=== PATIENT | female | born 1940 | race Caucasian/White ===

== ENCOUNTER 2021-06-05 15:56 | Emergency (ER) | payer MEDICAID, MEDICARE, OTHER ==
--- NOTE | 2021-06-05 17:26 | EDM.PDOC ---
ED HPI GENERAL MEDICAL PROBLEM - General Chief Complaint: General Stated Complaint: BRUISING AND BLEEDING Time Seen by Provider: 06/05/21 17:10 Source of Information: Reports: Patient, Family. Denies: Old Records History Limitations: Reports: Other (no old records) - History of Present Illness INITIAL COMMENTS - FREE TEXT/NARRATIVE: 81 yo [place] presents with a concern about diffuse bruising. She was in a hospital a couple mos ago and had warfarin started for an unknown reason and claims she has never had an INR since then. She or family members called her provider today and they were told to come to the ER. Has not had blood in her stool or urine. No nose bleeds. Is not dizzy with standing. 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 (see below) (none) - Related Data Allergies Allergy/AdvReac Type Severity Reaction Status Date / Time No Known Allergies Allergy Verified 06/05/21 16:56 Home Meds: Home Meds Aspirin 81 mg PO DAILY 06/05/21 [History] Diphenoxylate HCl/Atropine [Diphenoxylate-Atrop 2.5-0.025] 1 each PO ASDIRECTED PRN 06/05/21 [History] Furosemide 40 mg PO DAILY 06/05/21 [History] Glimepiride 2 mg PO DAILY 06/05/21 [History] Multivitamin with Minerals [Multiple Vitamin] 1 tab PO DAILY 06/05/21 [History] Omeprazole 20 mg PO DAILY 06/05/21 [History] Potassium Chloride 10 meq PO BID 06/05/21 [History] Simvastatin [Zocor] 20 mg PO BEDTIME 06/05/21 [History] Spironolactone [Aldactone] 25 mg PO BID 06/05/21 [History] Warfarin [Coumadin] 2.5 mg PO DAILY 06/05/21 [History] amLODIPine Besylate [Amlodipine Besylate] 5 mg PO DAILY 06/05/21 [History] predniSONE [Prednisone] 5 mg PO DAILY 06/05/21 [History] Past Medical History Cardiovascular History: Reports: Hypertension 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: Endocrine/Metabolic History: Reports: Diabetes, Type II Oncologic (Cancer) History: Reports: Other (See Below) Other Oncologic History: skin Dermatologic History: Reports: Melanoma - Infectious Disease History Infectious Disease History: Reports: Chicken Pox, Measles, Mumps - Past Surgical History GI Surgical History: Reports: Appendectomy, Cholecystectomy Female Surgical History: Reports: Hysterectomy Social & Family History - Tobacco Use Tobacco Use Status *Q: Never Tobacco User - Caffeine Use Caffeine Use: Reports: Coffee ED ROS GENERAL - Review of Systems Review Of Systems: See Below Constitutional: Reports: No Symptoms HEENT: Reports: No Symptoms Respiratory: Reports: No Symptoms Cardiovascular: Reports: No Symptoms GI/Abdominal: Reports: No Symptoms : Reports: No Symptoms Musculoskeletal: Reports: No Symptoms Skin: Reports: Bruising (diffusely) Neurological: Reports: No Symptoms ED EXAM, GENERAL - Physical Exam Exam: See Below Exam Limited By: No Limitations General Appearance: Alert, WD/WN, No Apparent Distress Eye Exam: Bilateral Eye: Normal Inspection Ears: Normal External Exam, Normal Canal, Hearing Grossly Normal Ear Exam: Bilateral Ear: Auricle Normal, Canal Normal Nose: Normal Inspection, No Blood Throat/Mouth: Normal Inspection, Normal Lips, Normal Oropharynx, Normal Voice, No Airway Compromise, Other (edentulous) Head: Atraumatic, Normocephalic Neck: Normal Inspection Respiratory/Chest: No Respiratory Distress, Lungs Clear, Normal Breath Sounds, No Accessory Muscle Use Cardiovascular: Regular Rate, Rhythm, No Edema GI/Abdominal: Soft, Non-Tender, No Distention Extremities: Normal Inspection, Normal Range of Motion, Non-Tender, No Pedal Edema Neurological: Alert, Oriented, CN II-XII Intact, Normal Cognition, No Motor/Sensory Deficits Psychiatric: Normal Affect, Normal Mood Skin Exam: Warm, Dry, Intact, No Rash, Ecchymosis (diffusely). No: Normal Color, Erythema, Increased Warmth, Wound/Incision Course - Vital Signs Last Recorded V/S: Last Vital Signs Temp 36.5 C 06/05/21 16:51 Pulse 74 06/05/21 16:51 Resp 16 06/05/21 16:51 BP 180/70 H 06/05/21 16:51 Pulse Ox 97 06/05/21 16:51 - Orders/Labs/Meds Labs: Laboratory Tests 06/05/21 06/05/21 Range/Units 17:29 17:35 WBC 7.7 (4.5-11.0) K/uL RBC 3.82 (3.30-5.50) M/uL Hgb 10.2 L (12.0-15.0) g/dL Hct 33.1 L (36.0-48.0) % MCV 87 (80-98) fL MCH 27 (27-31) pg MCHC 31 L (32-36) % Plt Count 273 (150-400) K/uL PT 13.5 H (9.5-12.0) sec INR 1.24 H (0.80-1.20) Departure - Departure Time of Disposition: 18:12 Disposition: Home, Self-Care 01 Condition: Good Clinical Impression: Bruising - Discharge Information *PRESCRIPTION DRUG MONITORING PROGRAM REVIEWED*: Not Applicable *COPY OF PRESCRIPTION DRUG MONITORING REPORT IN PATIENT BETSY: Not Applicable Referrals: PCP,None [Primary Care Provider] - Forms: ED Department Discharge Additional Instructions: Discuss your bruising and your lab results with your doctor at your earliest opportunity. Return as needed. Sepsis Event Note (ED) - Focused Exam Vital Signs: Vital Signs Temp Pulse Resp BP Pulse Ox 06/05/21 16:51 36.5 C 74 16 180/70 H 97
== END 2021-06-05 18:19 | disposition home or self-care (01) ==
LOC: JP.ED 15:56
DX: M79.81 Nontraumatic hematoma of soft tissue (principal); I10 Essential (primary) hypertension; E11.9 Type 2 diabetes mellitus without complications; Z79.01 Long term (current) use of anticoagulants; Z79.899 Other long term (current) drug therapy
CPT/HCPCS: 36415; 85027; 85610; 99283